=== PATIENT | female | born 1995 | race African-American/Black ===

== ENCOUNTER 2023-05-26 12:40 | Emergency (ER) | payer OTHER ==
[~2023-05-26] VITALS: Ht 157.5 cm; Wt 59.0 kg
[2023-05-26 13:09] VITALS: BP 111/67; PULSE 69; RESP 16; TEMP 98.2; O2SAT 99
[2023-05-26] MEDS ORDERED: AMOX1TAB8 PO (14:20)
[2023-05-26] MEDS ORDERED: BACI-418 TP (14:20)
[2023-05-26] MEDS ORDERED: BACITRACIN OINT 500 UNITS/GM PKT TP ONE (14:25)
--- NOTE | 2023-05-26 14:41 | NUR ---
PT LEFT WITHOUT DC INSTRUCTIONS.
== END 2023-05-26 14:41 | disposition home or self-care (01) ==
LOC: MED 12:40
DX: S61.236A Puncture wound without foreign body of right little finger without damage to nail, initial encounter (principal); W55.01XA Bitten by cat, initial encounter; Y93.89 Activity, other specified; Y92.89 Other specified places as the place of occurrence of the external cause; Y99.8 Other external cause status
CPT/HCPCS: 99281